=== PATIENT | male | born 1980 | race Caucasian/White ===

== ENCOUNTER 2021-08-16 21:54 | Inpatient (IN) | payer MEDICAID ==
[~2021-08-16] VITALS: Ht 172.7 cm; Wt 131.1 kg
[2021-08-16] MEDS ORDERED: POTA8TAB71 PO (22:09)
[2021-08-16] MEDS ORDERED: APIX5TAB PO (22:09)
[2021-08-16] MEDS ORDERED: SERT-158 PO (22:09)
[2021-08-16] MEDS ORDERED: RISP1TAB48 PO (22:09)
[2021-08-16 22:46] LABS: GLUCOMETER DEV NAME(LOC) POC.BV
[2021-08-16] MEDS: LORazepam 2 MG TABLET PO PRN (23:48)
[2021-08-17 00:34] VITALS: BP 131/88
[2021-08-17] MEDS ORDERED: PNEUMOCOCCAL VACCINE POLYVALENT 0.5 ML VIAL [PPSV23] IM. ONE (01:15)
[2021-08-17] MEDS ORDERED: GuaiFENesin/D-METHORPHAN [SUGAR-FREE] 200-20MG/10 ML SYRUP UDCUP PO PRN (06:15)
[2021-08-17] MEDS ORDERED: ONDANSETRON HCL 4 MG TABLET PO PRN (06:15)
[2021-08-17] MEDS ORDERED: LOPERAMIDE HCL 2 MG CAPSULE PO PRN (06:15)
[2021-08-17] MEDS ORDERED: PETROLATUM,WHITE 28 GM JELLY TP PRN (06:15)
[2021-08-17] MEDS ORDERED: DOCUSATE SODIUM 100 MG CAPSULE PO PRN (06:15)
[2021-08-17] MEDS ORDERED: MAGNESIUM HYDROXIDE SUSPENSION 30 ML UDCUP PO PRN (06:15)
[2021-08-17 07:22] LABS: EOSINOPHILS % (AUTO) 2.6 % (1.0-6.0); HEMATOCRIT 43.1 % (41-53); LYMPHOCYTES # (AUTO) 1.5 K/uL (1.0-4.8); LYMPHOCYTES % (AUTO) 31.4 % (22.0-44.0); MEAN CORPUSCULAR HEMOGLOBIN 29.6 pg (26.0-34.0); MEAN CORPUSCULAR HGB CONC 32.6 G/dL (31.0-37.0); MEAN CORPUSCULAR VOLUME 91 fL (80-100); MONOCYTES # (AUTO) 0.6 K/uL (0.1-1.0); MONOCYTES % (AUTO) 12.9 % (2.0-9.0); NEUTROPHILS # (AUTO) 2.5 K/uL (1.8-7.7); NEUTROPHILS % (AUTO) 52.1 % (40.0-70.0); PLATELET COUNT (AUTO) 213 K/uL (150-450); RED BLOOD CELL COUNT(AUTO) 4.75 MIL/uL (4.50-5.90); RED CELL DISTRIBUTION WIDTH 15.6 % (11.5-14.5)
[2021-08-17 07:30] LABS: HEMOGLOBIN A1C 5.7 % (3.8-5.6)
[2021-08-17 07:51] LABS: ALANINE AMINOTRANSFERASE 43 U/L (12-78); ALBUMIN 3.5 g/dL (3.4-5.0); ALKALINE PHOSPHATASE 56 U/L (46-116); ANION GAP 4 mmol/L (8-16); ASPARTATE AMINOTRANSFERASE 30 U/L (15-37); BILIRUBIN,TOTAL 0.3 mg/dL (0.1-1.0); CARBON DIOXIDE 32 mmol/L (22-29); CHLORIDE 104 mmol/L (98-107); CHOL/HDL RATIO 2.4 (4.2-7.3); CHOLESTEROL 148 mg/dL (131-200); CREATININE 0.84 mg/dL (0.60-1.30); FREE T4 (FREE THYROXINE) 1.06 ng/dL (0.76-1.46); GLUCOSE,RANDOM 88 mg/dL (70-110); HDL CHOLESTEROL 62 mg/dL (40-60); LDL CHOL (CALC.) 69 mg/dL (0-130); POTASSIUM 4.2 mmol/L (3.5-5.1); SODIUM SERUM 140 mmol/L (136-145); THYROID STIMULATING HORMONE 1.32 uIU/mL (0.36-3.74); TOTAL PROTEIN, SERUM 6.8 g/dL (6.4-8.2); TRIGLYCERIDES 87 mg/dL (15-150); UREA NITROGEN, BLOOD 26 mg/dL (7-18)
[2021-08-17 07:53] LABS: GLOMERULAR FILTR. RATE CALC > 60 mL/min (>60)
[2021-08-17] MEDS: LEVOFLOXACIN 500 MG TABLET PO SCH (08:11)
[2021-08-17 08:28] VITALS: BP 145/77
[2021-08-17] MEDS: APIXABAN 5 MG TABLET PO SCH (12:33)
[2021-08-17 17:07] VITALS: BP 128/80
[2021-08-18] MEDS: LORazepam 2 MG TABLET PO PRN (02:06)
[2021-08-18 08:31] VITALS: BP 151/91
[2021-08-18] MEDS: LEVOFLOXACIN 500 MG TABLET PO SCH (08:59)
[2021-08-18] MEDS: SERTRALINE HCL 50 MG TABLET PO SCH ×2 (08:59→09:00)
[2021-08-18] MEDS: APIXABAN 5 MG TABLET PO SCH ×3 (08:59→17:00)
[2021-08-18] MEDS: RisperiDONE 1 MG TABLET PO SCH (09:00)
[2021-08-18 16:13] VITALS: BP 116/65
[2021-08-18] MEDS: RisperiDONE 2 MG TABLET PO SCH (21:03)
[2021-08-18 21:56] LABS: APPEARANCE,URINE CLEAR (CLEAR); BILIRUBIN,URINE NEGATIVE (NEGATIVE); GLUCOSE, URINE (UA) NEGATIVE (NEGATIVE); KETONES,URINE NEGATIVE (NEGATIVE); LEUKOCYTE ESTERASE ,URINE NEGATIVE (NEGATIVE); NITRATE,URINE NEGATIVE (NEGATIVE); OCCULT BLOOD,URINE NEGATIVE (NEGATIVE); PROTEIN,URINE TRACE mg/dL (NEGATIVE); UROBILINOGEN,URINE <=1.0 mg/dL (<=1.0)
[2021-08-18 22:03] LABS: AMPHET/METH SCREEN,URINE NEGATIVE (NEGATIVE); BARBITURATE SCREEN, URINE NEGATIVE (NEGATIVE); BENZODIAZEPINES SCREEN,URINE NEGATIVE (NEGATIVE); CANNABINOID SCREEN,URINE NEGATIVE (NEGATIVE); COCAINE SCREEN,URINE NEGATIVE (NEGATIVE); METHADONE SCREEN, URINE NEGATIVE (NEGATIVE); OPIATE SCREEN,URINE NEGATIVE (NEGATIVE)
[2021-08-18 22:04] LABS: PHENCYCLIDINE SCREEN,URINE NEGATIVE (NEGATIVE)
[2021-08-19] MEDS: LORazepam 2 MG TABLET PO PRN (03:43)
[2021-08-19 03:45] VITALS: BP 155/97
[2021-08-19 08:00] VITALS: BP 151/87
[2021-08-19] MEDS: LEVOFLOXACIN 500 MG TABLET PO SCH (08:54)
[2021-08-19] MEDS: SERTRALINE HCL 50 MG TABLET PO SCH (08:54)
[2021-08-19] MEDS: RisperiDONE 2 MG TABLET PO SCH ×2 (08:54→20:38)
[2021-08-19] MEDS: APIXABAN 5 MG TABLET PO SCH ×2 (08:54→16:36)
[2021-08-19 12:43] VITALS: BP 138/82
[2021-08-19] MEDS: IBUPROFEN 400 MG TABLET PO PRN (12:43)
[2021-08-19 16:36] VITALS: BP 140/75
[2021-08-20] MEDS: LEVOFLOXACIN 500 MG TABLET PO SCH (08:36)
[2021-08-20] MEDS: RisperiDONE 2 MG TABLET PO SCH ×2 (08:37→20:50)
[2021-08-20] MEDS: APIXABAN 5 MG TABLET PO SCH ×2 (08:37→16:42)
[2021-08-20] MEDS: SERTRALINE HCL 50 MG TABLET PO SCH (09:14)
[2021-08-20 10:03] VITALS: BP 149/100
[2021-08-20 19:09] VITALS: BP 148/90
[2021-08-21] MEDS: HALOPERIDOL 5 MG TABLET PO PRN (01:40)
[2021-08-21] MEDS: LORazepam 2 MG TABLET PO PRN ×3 (01:40→21:48)
[2021-08-21] MEDS ORDERED: DiphenhydrAMINE HCL 50 MG/ML VIAL ONE (01:59)
[2021-08-21] MEDS ORDERED: ChlorproMAZINE HCL 50 MG/2 ML AMP IM ONE (02:00)
[2021-08-21] MEDS ORDERED: DiphenhydrAMINE HCL 50 MG/ML VIAL IM ONE (02:00)
[2021-08-21 08:03] VITALS: BP 116/80
[2021-08-21] MEDS: RisperiDONE 2 MG TABLET PO SCH ×2 (08:16→20:30)
[2021-08-21] MEDS: SERTRALINE HCL 50 MG TABLET PO SCH (08:16)
[2021-08-21] MEDS: LEVOFLOXACIN 500 MG TABLET PO SCH (08:20)
[2021-08-21] MEDS: APIXABAN 5 MG TABLET PO SCH ×2 (08:20→16:40)
[2021-08-21 16:34] VITALS: BP 140/78
[2021-08-22 07:23] LABS: COVID AG,FIA SOURCE NASAL SWAB
[2021-08-22] MEDS: RisperiDONE 2 MG TABLET PO SCH (08:23)
[2021-08-22] MEDS: APIXABAN 5 MG TABLET PO SCH ×2 (08:23→17:02)
[2021-08-22] MEDS: SERTRALINE HCL 50 MG TABLET PO SCH (08:23)
[2021-08-22] MEDS: LEVOFLOXACIN 500 MG TABLET PO SCH (08:23)
[2021-08-22 08:57] VITALS: BP 148/97
[2021-08-22] MEDS ORDERED: RisperiDONE 1 MG TABLET PO ONE (09:45)
[2021-08-22] MEDS: ACETAMINOPHEN 325 MG TABLET PO PRN ×2 (12:24→21:24)
[2021-08-22] MEDS: LORazepam 2 MG TABLET PO PRN ×2 (15:39→21:30)
[2021-08-22 16:10] VITALS: BP 132/81
[2021-08-22] MEDS: RisperiDONE 3 MG TABLET PO SCH (20:18)
[2021-08-23 08:00] VITALS: BP 127/70
[2021-08-23] MEDS: SERTRALINE HCL 50 MG TABLET PO SCH (08:42)
[2021-08-23] MEDS: LEVOFLOXACIN 500 MG TABLET PO SCH (08:42)
[2021-08-23] MEDS: APIXABAN 5 MG TABLET PO SCH ×2 (08:42→16:07)
[2021-08-23] MEDS: RisperiDONE 3 MG TABLET PO SCH ×2 (08:42→20:04)
[2021-08-23] MEDS: LORazepam 2 MG TABLET PO PRN ×2 (08:43→18:47)
[2021-08-23 16:29] VITALS: BP 130/83
[2021-08-23] MEDS: ACETAMINOPHEN 325 MG TABLET PO PRN (18:47)
[2021-08-24] MEDS: SERTRALINE HCL 50 MG TABLET PO SCH (08:23)
[2021-08-24] MEDS: RisperiDONE 3 MG TABLET PO SCH ×2 (08:23→20:21)
[2021-08-24] MEDS: APIXABAN 5 MG TABLET PO SCH ×2 (08:23→16:22)
[2021-08-24] MEDS: IBUPROFEN 400 MG TABLET PO PRN (08:23)
[2021-08-24] MEDS: LORazepam 2 MG TABLET PO PRN (08:24)
[2021-08-24 09:53] VITALS: BP 137/69
[2021-08-24 16:44] VITALS: BP 133/86
[2021-08-24 23:04] VITALS: BP 137/69
[2021-08-25] MEDS: APIXABAN 5 MG TABLET PO SCH ×2 (08:30→16:26)
[2021-08-25] MEDS: LORazepam 2 MG TABLET PO PRN (08:30)
[2021-08-25] MEDS: SERTRALINE HCL 50 MG TABLET PO SCH (08:30)
[2021-08-25] MEDS: RisperiDONE 3 MG TABLET PO SCH ×2 (08:30→20:46)
[2021-08-25 08:34] VITALS: BP 154/92
[2021-08-25] MEDS: IBUPROFEN 400 MG TABLET PO PRN (08:34)
[2021-08-25 16:27] VITALS: BP 137/89
[2021-08-26 04:05] VITALS: BP 134/84
[2021-08-26] MEDS: LORazepam 2 MG TABLET PO PRN ×2 (09:05→16:30)
[2021-08-26] MEDS: RisperiDONE 3 MG TABLET PO SCH ×2 (09:05→20:31)
[2021-08-26] MEDS: SERTRALINE HCL 50 MG TABLET PO SCH (09:05)
[2021-08-26] MEDS: APIXABAN 5 MG TABLET PO SCH ×2 (09:05→16:31)
[2021-08-26 09:50] VITALS: BP 151/76
[2021-08-26 16:50] VITALS: BP 152/89
[2021-08-27 00:28] VITALS: BP 153/88
[2021-08-27] MEDS: ZOLPIDEM TARTRATE 10 MG TABLET PO PRN (01:06)
[2021-08-27 08:30] VITALS: BP 171/101
[2021-08-27] MEDS: CloNIDine HCL 0.1 MG TABLET PO PRN (08:31)
[2021-08-27] MEDS: SERTRALINE HCL 50 MG TABLET PO SCH (08:31)
[2021-08-27] MEDS: LORazepam 2 MG TABLET PO PRN ×3 (08:31→20:54)
[2021-08-27] MEDS: RisperiDONE 3 MG TABLET PO SCH ×2 (08:31→20:52)
[2021-08-27] MEDS: APIXABAN 5 MG TABLET PO SCH ×2 (08:32→16:53)
[2021-08-27 12:55] VITALS: BP 106/68
[2021-08-27 16:14] VITALS: BP 102/66
[2021-08-27] MEDS: HALOPERIDOL 5 MG TABLET PO PRN (16:53)
[2021-08-28 08:36] VITALS: BP 128/84
[2021-08-28] MEDS: SERTRALINE HCL 50 MG TABLET PO SCH (08:37)
[2021-08-28] MEDS: RisperiDONE 3 MG TABLET PO SCH ×2 (08:37→20:30)
[2021-08-28] MEDS: APIXABAN 5 MG TABLET PO SCH ×2 (08:37→16:53)
[2021-08-28] MEDS: LORazepam 2 MG TABLET PO PRN ×3 (08:41→20:53)
[2021-08-28 16:25] VITALS: BP 144/94
[2021-08-28] MEDS: HALOPERIDOL 5 MG TABLET PO PRN (16:53)
[2021-08-28 20:54] VITALS: BP 129/85
[2021-08-29 06:41] LABS: COVID AG,FIA SOURCE NASAL SWAB
[2021-08-29 08:21] VITALS: BP 119/81
[2021-08-29] MEDS: APIXABAN 5 MG TABLET PO SCH ×2 (09:00→16:56)
[2021-08-29] MEDS: SERTRALINE HCL 50 MG TABLET PO SCH (09:00)
[2021-08-29] MEDS: DIVALPROEX SODIUM 500 MG DR TABLET PO SCH ×3 (09:00→21:39)
[2021-08-29] MEDS: RisperiDONE 3 MG TABLET PO SCH ×2 (09:01→20:09)
[2021-08-29] MEDS: LORazepam 2 MG TABLET PO PRN ×2 (09:02→16:56)
[2021-08-29] MEDS: HALOPERIDOL 5 MG TABLET PO PRN ×2 (09:02→16:56)
[2021-08-29] MEDS: PALIPERIDONE PALMITATE 234 MG/1.5 ML SYRINGE IM ONE ×2 (09:03→09:22)
[2021-08-29 16:16] VITALS: BP 153/99
[2021-08-29 20:37] VITALS: BP 141/91
[2021-08-30 08:26] VITALS: BP 139/89
[2021-08-30] MEDS: RisperiDONE 3 MG TABLET PO SCH ×2 (08:58→20:03)
[2021-08-30] MEDS: APIXABAN 5 MG TABLET PO SCH ×2 (08:58→16:27)
[2021-08-30] MEDS: SERTRALINE HCL 50 MG TABLET PO SCH (08:58)
[2021-08-30] MEDS: LORazepam 2 MG TABLET PO PRN ×2 (08:58→13:03)
[2021-08-30] MEDS: DIVALPROEX SODIUM 500 MG DR TABLET PO SCH ×2 (08:58→20:03)
[2021-08-30] MEDS: IBUPROFEN 400 MG TABLET PO PRN ×2 (12:46→12:58)
[2021-08-30 16:30] VITALS: BP 112/67
[2021-08-30 20:38] VITALS: BP 118/72
[2021-08-31 08:00] VITALS: BP 117/70
[2021-08-31] MEDS: RisperiDONE 3 MG TABLET PO SCH ×2 (08:09→20:30)
[2021-08-31] MEDS: SERTRALINE HCL 50 MG TABLET PO SCH (08:09)
[2021-08-31] MEDS: LORazepam 2 MG TABLET PO PRN ×2 (08:09→17:03)
[2021-08-31] MEDS: DIVALPROEX SODIUM 500 MG DR TABLET PO SCH ×2 (08:09→20:30)
[2021-08-31] MEDS: APIXABAN 5 MG TABLET PO SCH ×2 (08:09→17:03)
[2021-08-31 16:31] VITALS: BP 140/97
[2021-08-31] MEDS: HALOPERIDOL 5 MG TABLET PO PRN (17:03)
[2021-08-31 20:13] VITALS: BP 116/76
[2021-09-01] MEDS: SERTRALINE HCL 50 MG TABLET PO SCH (08:08)
[2021-09-01] MEDS: RisperiDONE 3 MG TABLET PO SCH ×2 (08:08→20:14)
[2021-09-01] MEDS: DIVALPROEX SODIUM 500 MG DR TABLET PO SCH ×2 (08:08→20:14)
[2021-09-01] MEDS: APIXABAN 5 MG TABLET PO SCH ×2 (08:08→16:54)
[2021-09-01 08:28] VITALS: BP_SYST 143; BP_SYST 145; BP_DIAS 100; BP_DIAS 87
[2021-09-01] MEDS: LORazepam 2 MG TABLET PO PRN ×2 (08:40→16:54)
[2021-09-01 16:15] VITALS: BP 134/86
[2021-09-01] MEDS: HALOPERIDOL 5 MG TABLET PO PRN (16:54)
[2021-09-02 08:01] VITALS: BP 147/86
[2021-09-02] MEDS: LORazepam 2 MG TABLET PO PRN ×2 (08:37→15:50)
[2021-09-02] MEDS: RisperiDONE 3 MG TABLET PO SCH ×2 (08:37→20:19)
[2021-09-02] MEDS: DIVALPROEX SODIUM 500 MG DR TABLET PO SCH ×2 (08:37→20:20)
[2021-09-02] MEDS: APIXABAN 5 MG TABLET PO SCH ×2 (08:37→16:27)
[2021-09-02] MEDS: SERTRALINE HCL 50 MG TABLET PO SCH (08:37)
[2021-09-02] MEDS ORDERED: PALIPERIDONE PALMITATE 156 MG/ML SYRINGE IM ONE (09:00)
[2021-09-02] MEDS: NICOTINE 14 MG/24 HOUR PATCH TD PRN (13:03)
[2021-09-02] MEDS: ACETAMINOPHEN 325 MG TABLET PO PRN (15:50)
[2021-09-02 16:01] VITALS: BP 122/86
[2021-09-03] MEDS: DIVALPROEX SODIUM 500 MG DR TABLET PO SCH ×2 (08:28→20:03)
[2021-09-03] MEDS: RisperiDONE 3 MG TABLET PO SCH ×2 (08:28→20:03)
[2021-09-03] MEDS: SERTRALINE HCL 50 MG TABLET PO SCH (08:28)
[2021-09-03] MEDS: APIXABAN 5 MG TABLET PO SCH ×2 (08:28→16:08)
[2021-09-03] MEDS: LORazepam 2 MG TABLET PO PRN ×2 (08:28→21:24)
[2021-09-03] MEDS: HALOPERIDOL 5 MG TABLET PO PRN ×2 (08:31→16:08)
[2021-09-03 08:32] VITALS: BP 147/98
[2021-09-03 16:14] VITALS: BP 131/79
[2021-09-03] MEDS: NICOTINE 14 MG/24 HOUR PATCH TD PRN (16:45)
[2021-09-04 08:34] VITALS: BP 159/92
[2021-09-04] MEDS: SERTRALINE HCL 50 MG TABLET PO SCH (08:41)
[2021-09-04] MEDS: DIVALPROEX SODIUM 500 MG DR TABLET PO SCH ×2 (08:41→20:49)
[2021-09-04] MEDS: APIXABAN 5 MG TABLET PO SCH ×2 (08:41→16:47)
[2021-09-04] MEDS: RisperiDONE 3 MG TABLET PO SCH ×2 (08:41→20:49)
[2021-09-04 16:00] VITALS: BP 140/78
[2021-09-04] MEDS: NICOTINE 14 MG/24 HOUR PATCH TD PRN (16:21)
[2021-09-04] MEDS: LORazepam 2 MG TABLET PO PRN (19:55)
[2021-09-04] MEDS: HALOPERIDOL 5 MG TABLET PO PRN (19:55)
[2021-09-05 04:08] VITALS: BP 150/91
[2021-09-05 08:00] VITALS: BP 134/76
[2021-09-05] MEDS: APIXABAN 5 MG TABLET PO SCH ×2 (08:21→16:24)
[2021-09-05] MEDS: SERTRALINE HCL 50 MG TABLET PO SCH (08:21)
[2021-09-05] MEDS: RisperiDONE 3 MG TABLET PO SCH ×2 (08:21→20:41)
[2021-09-05] MEDS: DIVALPROEX SODIUM 500 MG DR TABLET PO SCH ×2 (08:21→20:41)
[2021-09-05 10:55] LABS: COVID AG,FIA SOURCE NASAL SWAB
[2021-09-05] MEDS: HALOPERIDOL 5 MG TABLET PO PRN (16:24)
[2021-09-05] MEDS: LORazepam 2 MG TABLET PO PRN (16:24)
[2021-09-05 16:45] VITALS: BP 150/94
[2021-09-06] MEDS: LORazepam 2 MG TABLET PO PRN ×3 (04:20→15:58)
[2021-09-06 04:24] VITALS: BP 144/97
[2021-09-06 08:00] VITALS: BP 138/87
[2021-09-06] MEDS: SERTRALINE HCL 50 MG TABLET PO SCH (08:45)
[2021-09-06] MEDS: DIVALPROEX SODIUM 500 MG DR TABLET PO SCH ×3 (08:45→20:53)
[2021-09-06] MEDS: APIXABAN 5 MG TABLET PO SCH ×2 (08:45→17:03)
[2021-09-06] MEDS: RisperiDONE 3 MG TABLET PO SCH ×2 (08:45→20:22)
[2021-09-06] MEDS: NICOTINE 14 MG/24 HOUR PATCH TD PRN (09:35)
[2021-09-06] MEDS: HALOPERIDOL 5 MG TABLET PO PRN (15:58)
[2021-09-06 16:00] VITALS: BP 143/84
[2021-09-07] MEDS: LORazepam 2 MG TABLET PO PRN ×3 (00:25→20:39)
[2021-09-07 04:00] VITALS: BP 129/82
[2021-09-07] MEDS: APIXABAN 5 MG TABLET PO SCH ×2 (09:05→16:43)
[2021-09-07] MEDS: RisperiDONE 3 MG TABLET PO SCH ×2 (09:05→20:19)
[2021-09-07] MEDS: SERTRALINE HCL 50 MG TABLET PO SCH (09:05)
[2021-09-07] MEDS: DIVALPROEX SODIUM 500 MG DR TABLET PO SCH ×2 (09:05→20:19)
[2021-09-07] MEDS: NICOTINE 14 MG/24 HOUR PATCH TD PRN (09:42)
[2021-09-07 09:48] VITALS: BP 140/85
[2021-09-07] MEDS: HALOPERIDOL 5 MG TABLET PO PRN (11:13)
[2021-09-07 16:00] VITALS: BP 141/78
[2021-09-07] MEDS: MAG HYDROX/AL HYDROX/SIMETH ES 30 ML SUSPENSION UDCUP PO PRN (18:06)
[2021-09-07 20:39] VITALS: BP 110/64
[2021-09-08 08:00] VITALS: BP 140/79
[2021-09-08 08:27] VITALS: BP 142/88
[2021-09-08] MEDS: HALOPERIDOL 5 MG TABLET PO PRN (08:27)
[2021-09-08] MEDS: LORazepam 2 MG TABLET PO PRN ×2 (08:27→16:37)
[2021-09-08] MEDS: DIVALPROEX SODIUM 500 MG DR TABLET PO SCH ×2 (08:27→20:25)
[2021-09-08] MEDS: SERTRALINE HCL 50 MG TABLET PO SCH (08:28)
[2021-09-08] MEDS: RisperiDONE 3 MG TABLET PO SCH ×2 (08:28→20:25)
[2021-09-08] MEDS: APIXABAN 5 MG TABLET PO SCH ×2 (08:28→16:36)
[2021-09-08] MEDS: NICOTINE 14 MG/24 HOUR PATCH TD PRN (10:11)
[2021-09-08 16:00] VITALS: BP 109/58
[2021-09-08] MEDS: BusPIRone HCL 5 MG TABLET PO SCH ×2 (16:35→20:25)
[2021-09-08 21:00] VITALS: BP 134/74
[2021-09-09] MEDS: LORazepam 2 MG TABLET PO PRN ×2 (01:38→10:16)
[2021-09-09 08:45] VITALS: BP 101/61
[2021-09-09] MEDS: SERTRALINE HCL 50 MG TABLET PO SCH (09:29)
[2021-09-09] MEDS: BusPIRone HCL 5 MG TABLET PO SCH ×3 (09:29→20:18)
[2021-09-09] MEDS: RisperiDONE 3 MG TABLET PO SCH ×2 (09:29→20:18)
[2021-09-09] MEDS: APIXABAN 5 MG TABLET PO SCH ×2 (09:29→16:00)
[2021-09-09] MEDS: DIVALPROEX SODIUM 500 MG DR TABLET PO SCH ×2 (09:29→20:18)
[2021-09-09] MEDS: NICOTINE 14 MG/24 HOUR PATCH TD PRN (09:32)
[2021-09-09 12:08] VITALS: BP 101/61
[2021-09-09 16:00] VITALS: BP 111/69
[2021-09-09 21:51] LABS: APPEARANCE,URINE CLEAR (CLEAR); BILIRUBIN,URINE NEGATIVE (NEGATIVE); GLUCOSE, URINE (UA) NEGATIVE (NEGATIVE); KETONES,URINE NEGATIVE (NEGATIVE); LEUKOCYTE ESTERASE ,URINE NEGATIVE (NEGATIVE); NITRATE,URINE NEGATIVE (NEGATIVE); OCCULT BLOOD,URINE NEGATIVE (NEGATIVE); PH,URINE 6.5 (5.0-8.0); PROTEIN,URINE NEGATIVE (NEGATIVE); SPECIFIC GRAVITIY, URINE 1.023 (1.003-1.030); UROBILINOGEN,URINE <=1.0 mg/dL (<=1.0)
[2021-09-10] MEDS: LORazepam 2 MG TABLET PO PRN ×2 (07:00→18:47)
[2021-09-10] MEDS: ALBUTEROL SULFATE HFA 90 MCG/PUFF 8 GM INHALER IH PRN ×2 (07:52→18:49)
[2021-09-10 08:00] VITALS: BP 157/99
[2021-09-10] MEDS: RisperiDONE 3 MG TABLET PO SCH ×2 (08:13→20:31)
[2021-09-10] MEDS: APIXABAN 5 MG TABLET PO SCH ×2 (08:13→16:32)
[2021-09-10] MEDS: SERTRALINE HCL 50 MG TABLET PO SCH (08:13)
[2021-09-10] MEDS: BusPIRone HCL 5 MG TABLET PO SCH ×3 (08:14→20:31)
[2021-09-10] MEDS: DIVALPROEX SODIUM 500 MG DR TABLET PO SCH ×2 (08:14→20:31)
[2021-09-10] MEDS: NICOTINE 14 MG/24 HOUR PATCH TD PRN (11:16)
[2021-09-10 16:14] VITALS: BP 122/70
[2021-09-10] MEDS: HALOPERIDOL 5 MG TABLET PO PRN (18:47)
[2021-09-10] MEDS: ACETAMINOPHEN 325 MG TABLET PO PRN (19:05)
[2021-09-11 08:30] VITALS: BP 132/85
[2021-09-11] MEDS: LORazepam 2 MG TABLET PO PRN ×2 (08:34→16:09)
[2021-09-11] MEDS: HALOPERIDOL 5 MG TABLET PO PRN ×2 (08:34→16:09)
[2021-09-11] MEDS: ALBUTEROL SULFATE HFA 90 MCG/PUFF 8 GM INHALER IH PRN (08:36)
[2021-09-11] MEDS: DIVALPROEX SODIUM 500 MG DR TABLET PO SCH ×2 (09:15→20:29)
[2021-09-11] MEDS: SERTRALINE HCL 50 MG TABLET PO SCH (09:16)
[2021-09-11] MEDS: APIXABAN 5 MG TABLET PO SCH ×2 (09:16→16:09)
[2021-09-11] MEDS: BusPIRone HCL 5 MG TABLET PO SCH ×3 (09:16→21:12)
[2021-09-11] MEDS: RisperiDONE 3 MG TABLET PO SCH ×2 (09:16→20:29)
[2021-09-11] MEDS: NICOTINE 14 MG/24 HOUR PATCH TD PRN (09:42)
[2021-09-11] MEDS: ACETAMINOPHEN 325 MG TABLET PO PRN (13:15)
[2021-09-11 13:17] VITALS: BP 136/80
[2021-09-11 16:10] VITALS: BP 135/95
[2021-09-11] MEDS: ZOLPIDEM TARTRATE 10 MG TABLET PO PRN (20:27)
[2021-09-12] MEDS: BusPIRone HCL 5 MG TABLET PO SCH ×3 (08:32→20:14)
[2021-09-12] MEDS: DIVALPROEX SODIUM 500 MG DR TABLET PO SCH ×2 (08:32→20:14)
[2021-09-12] MEDS: SERTRALINE HCL 50 MG TABLET PO SCH (08:32)
[2021-09-12] MEDS: APIXABAN 5 MG TABLET PO SCH ×2 (08:32→16:35)
[2021-09-12] MEDS: RisperiDONE 3 MG TABLET PO SCH ×2 (08:32→20:14)
[2021-09-12 09:19] VITALS: BP 104/62
[2021-09-12 10:10] LABS: COVID AG,FIA SOURCE NASOPHARYNGEAL
[2021-09-12] MEDS: HALOPERIDOL 5 MG TABLET PO PRN ×2 (10:37→16:35)
[2021-09-12] MEDS: LORazepam 2 MG TABLET PO PRN ×2 (10:37→18:48)
[2021-09-12] MEDS: NICOTINE 14 MG/24 HOUR PATCH TD PRN (12:33)
[2021-09-12] MEDS ORDERED: TUBERCULIN, PURIFIED PROTEIN DERIVATIVE 5 TU/0.1 ML SYRINGE ID ONE (16:00)
[2021-09-12 16:17] VITALS: BP 150/81
[2021-09-13] MEDS: DIVALPROEX SODIUM 500 MG DR TABLET PO SCH ×2 (08:37→20:21)
[2021-09-13] MEDS: SERTRALINE HCL 50 MG TABLET PO SCH (08:37)
[2021-09-13] MEDS: BusPIRone HCL 5 MG TABLET PO SCH ×3 (08:37→20:21)
[2021-09-13] MEDS: RisperiDONE 3 MG TABLET PO SCH ×2 (08:37→20:21)
[2021-09-13] MEDS: APIXABAN 5 MG TABLET PO SCH ×2 (08:37→17:06)
[2021-09-13] MEDS: LORazepam 2 MG TABLET PO PRN (08:38)
[2021-09-13] MEDS: HALOPERIDOL 5 MG TABLET PO PRN ×2 (08:38→16:06)
[2021-09-13 09:42] VITALS: BP 116/73
[2021-09-13] MEDS: NICOTINE 14 MG/24 HOUR PATCH TD PRN (10:11)
[2021-09-13 16:00] VITALS: BP 143/81
[2021-09-13 17:06] VITALS: BP 138/76
[2021-09-13] MEDS: ACETAMINOPHEN 325 MG TABLET PO PRN (17:06)
[2021-09-13] MEDS: ZOLPIDEM TARTRATE 10 MG TABLET PO PRN (20:21)
[2021-09-14] MEDS: HALOPERIDOL 5 MG TABLET PO PRN ×2 (04:00→17:16)
[2021-09-14] MEDS: LORazepam 2 MG TABLET PO PRN ×3 (04:00→16:47)
[2021-09-14 04:02] VITALS: BP 138/99
[2021-09-14 08:00] VITALS: BP 105/61
[2021-09-14] MEDS: APIXABAN 5 MG TABLET PO SCH ×2 (09:07→16:47)
[2021-09-14] MEDS: SERTRALINE HCL 50 MG TABLET PO SCH (09:07)
[2021-09-14] MEDS: RisperiDONE 3 MG TABLET PO SCH ×2 (09:07→20:32)
[2021-09-14] MEDS: BusPIRone HCL 5 MG TABLET PO SCH ×3 (09:07→21:13)
[2021-09-14] MEDS: DIVALPROEX SODIUM 500 MG DR TABLET PO SCH ×2 (09:07→20:32)
[2021-09-14] MEDS: NICOTINE 14 MG/24 HOUR PATCH TD PRN (10:18)
[2021-09-14 16:16] VITALS: BP 147/88
[2021-09-14] MEDS: MAG HYDROX/AL HYDROX/SIMETH ES 30 ML SUSPENSION UDCUP PO PRN (23:25)
[2021-09-15 03:41] VITALS: BP 140/85
[2021-09-15] MEDS: LORazepam 2 MG TABLET PO PRN ×4 (03:44→21:12)
[2021-09-15] MEDS: HALOPERIDOL 5 MG TABLET PO PRN ×3 (03:44→21:12)
[2021-09-15 08:00] VITALS: BP 159/60
[2021-09-15] MEDS: BusPIRone HCL 5 MG TABLET PO SCH ×3 (08:53→21:14)
[2021-09-15] MEDS: DIVALPROEX SODIUM 500 MG DR TABLET PO SCH ×2 (08:53→21:10)
[2021-09-15] MEDS: SERTRALINE HCL 50 MG TABLET PO SCH (08:53)
[2021-09-15] MEDS: APIXABAN 5 MG TABLET PO SCH ×2 (08:53→17:05)
[2021-09-15] MEDS: RisperiDONE 3 MG TABLET PO SCH ×2 (08:53→21:09)
[2021-09-15] MEDS: NICOTINE 14 MG/24 HOUR PATCH TD PRN (09:54)
[2021-09-16] MEDS: RisperiDONE 3 MG TABLET PO SCH ×2 (08:36→21:19)
[2021-09-16] MEDS: APIXABAN 5 MG TABLET PO SCH ×2 (08:36→16:59)
[2021-09-16] MEDS: BusPIRone HCL 5 MG TABLET PO SCH ×3 (08:37→21:19)
[2021-09-16] MEDS: DIVALPROEX SODIUM 500 MG DR TABLET PO SCH ×2 (08:37→21:20)
[2021-09-16] MEDS: SERTRALINE HCL 50 MG TABLET PO SCH (08:37)
[2021-09-16 08:50] VITALS: BP 130/75
[2021-09-16] MEDS: HALOPERIDOL 5 MG TABLET PO PRN ×2 (09:28→15:30)
[2021-09-16] MEDS: LORazepam 2 MG TABLET PO PRN ×2 (09:28→15:30)
[2021-09-16] MEDS: NICOTINE 14 MG/24 HOUR PATCH TD PRN (09:32)
[2021-09-16 16:26] VITALS: BP 134/86
[2021-09-17] MEDS: BusPIRone HCL 5 MG TABLET PO SCH ×3 (08:26→20:43)
[2021-09-17] MEDS: DIVALPROEX SODIUM 500 MG DR TABLET PO SCH ×2 (08:26→20:44)
[2021-09-17] MEDS: SERTRALINE HCL 50 MG TABLET PO SCH (08:26)
[2021-09-17] MEDS: RisperiDONE 3 MG TABLET PO SCH ×2 (08:26→20:44)
[2021-09-17] MEDS: APIXABAN 5 MG TABLET PO SCH ×2 (08:27→17:15)
[2021-09-17 09:08] VITALS: BP 128/68
[2021-09-17] MEDS: NICOTINE 14 MG/24 HOUR PATCH TD PRN (09:22)
[2021-09-17] MEDS: HALOPERIDOL 5 MG TABLET PO PRN ×2 (12:55→19:36)
[2021-09-17] MEDS: LORazepam 2 MG TABLET PO PRN ×2 (12:55→19:36)
[2021-09-17 16:50] VITALS: BP 130/80
[2021-09-18] MEDS: APIXABAN 5 MG TABLET PO SCH ×2 (08:38→16:17)
[2021-09-18] MEDS: BusPIRone HCL 5 MG TABLET PO SCH ×3 (08:39→20:21)
[2021-09-18] MEDS: SERTRALINE HCL 50 MG TABLET PO SCH (08:39)
[2021-09-18] MEDS: RisperiDONE 3 MG TABLET PO SCH ×2 (08:39→20:21)
[2021-09-18] MEDS: DIVALPROEX SODIUM 500 MG DR TABLET PO SCH ×2 (08:39→20:21)
[2021-09-18] MEDS: NICOTINE 14 MG/24 HOUR PATCH TD PRN (08:54)
[2021-09-18 09:09] VITALS: BP 153/85
[2021-09-18] MEDS: ACETAMINOPHEN 325 MG TABLET PO PRN (12:29)
[2021-09-18] MEDS: LORazepam 2 MG TABLET PO PRN (16:16)
[2021-09-18] MEDS: HALOPERIDOL 5 MG TABLET PO PRN (16:16)
[2021-09-18 20:31] VITALS: BP 140/90
[2021-09-18] MEDS: IBUPROFEN 400 MG TABLET PO PRN (20:34)
[2021-09-18 21:34] VITALS: BP 140/80
[2021-09-18] MEDS: ZOLPIDEM TARTRATE 10 MG TABLET PO PRN (22:06)
[2021-09-19 04:01] VITALS: BP 143/85
[2021-09-19] MEDS: ACETAMINOPHEN 325 MG TABLET PO PRN (04:05)
[2021-09-19] MEDS: LORazepam 2 MG TABLET PO PRN ×2 (04:05→23:00)
[2021-09-19 08:04] VITALS: BP 113/63
[2021-09-19] MEDS: APIXABAN 5 MG TABLET PO SCH ×2 (08:50→16:23)
[2021-09-19] MEDS: SERTRALINE HCL 50 MG TABLET PO SCH (08:51)
[2021-09-19] MEDS: DIVALPROEX SODIUM 500 MG DR TABLET PO SCH ×2 (08:51→20:13)
[2021-09-19] MEDS: BusPIRone HCL 5 MG TABLET PO SCH ×3 (08:51→20:13)
[2021-09-19] MEDS: RisperiDONE 3 MG TABLET PO SCH ×2 (08:51→20:13)
[2021-09-19] MEDS: NICOTINE 14 MG/24 HOUR PATCH TD PRN (09:34)
[2021-09-19 09:59] LABS: COVID AG,FIA SOURCE NASAL SWAB
[2021-09-19] MEDS: IBUPROFEN 400 MG TABLET PO PRN (10:30)
[2021-09-19 10:31] VITALS: BP 116/70
[2021-09-19 16:19] VITALS: BP 126/73
[2021-09-19] MEDS: HALOPERIDOL 5 MG TABLET PO PRN (23:00)
[2021-09-20] MEDS: DIVALPROEX SODIUM 500 MG DR TABLET PO SCH ×3 (09:00→20:46)
[2021-09-20] MEDS: RisperiDONE 3 MG TABLET PO SCH ×2 (09:25→20:24)
[2021-09-20] MEDS: APIXABAN 5 MG TABLET PO SCH ×2 (09:25→16:55)
[2021-09-20] MEDS: BusPIRone HCL 5 MG TABLET PO SCH (09:26)
[2021-09-20] MEDS: SERTRALINE HCL 50 MG TABLET PO SCH (09:27)
[2021-09-20] MEDS: NICOTINE 14 MG/24 HOUR PATCH TD PRN (10:41)
[2021-09-20] MEDS: ALBUTEROL SULFATE HFA 90 MCG/PUFF 8 GM INHALER IH PRN (10:42)
[2021-09-20] MEDS: HALOPERIDOL 5 MG TABLET PO PRN ×2 (10:43→15:00)
[2021-09-20] MEDS: LORazepam 2 MG TABLET PO PRN ×2 (10:43→15:00)
[2021-09-20 14:53] VITALS: BP 126/74
[2021-09-20] MEDS: IBUPROFEN 400 MG TABLET PO PRN (14:53)
[2021-09-20 16:13] VITALS: BP 128/74
[2021-09-20] MEDS: BusPIRone HCL 10 MG TABLET PO SCH ×2 (16:55→20:24)
[2021-09-21 08:03] VITALS: BP 148/94
[2021-09-21] MEDS: RisperiDONE 3 MG TABLET PO SCH ×2 (08:45→20:27)
[2021-09-21] MEDS: DIVALPROEX SODIUM 500 MG DR TABLET PO SCH ×2 (08:45→20:36)
[2021-09-21] MEDS: APIXABAN 5 MG TABLET PO SCH ×2 (08:45→16:37)
[2021-09-21] MEDS: BusPIRone HCL 10 MG TABLET PO SCH ×3 (08:45→20:27)
[2021-09-21] MEDS: SERTRALINE HCL 50 MG TABLET PO SCH (08:46)
[2021-09-21] MEDS: NICOTINE 14 MG/24 HOUR PATCH TD PRN (10:12)
[2021-09-21 20:26] VITALS: BP 140/83
[2021-09-21 23:40] VITALS: BP 144/89
[2021-09-21] MEDS: IBUPROFEN 400 MG TABLET PO PRN (23:44)
[2021-09-22 04:50] VITALS: BP 150/89
[2021-09-22] MEDS: ACETAMINOPHEN 325 MG TABLET PO PRN (04:52)
[2021-09-22 08:00] VITALS: BP 154/92
[2021-09-22] MEDS: RisperiDONE 3 MG TABLET PO SCH ×2 (09:54→20:24)
[2021-09-22] MEDS: DIVALPROEX SODIUM 500 MG DR TABLET PO SCH ×2 (09:54→20:24)
[2021-09-22] MEDS: APIXABAN 5 MG TABLET PO SCH ×2 (09:54→16:20)
[2021-09-22] MEDS: SERTRALINE HCL 50 MG TABLET PO SCH (09:54)
[2021-09-22] MEDS: BusPIRone HCL 10 MG TABLET PO SCH ×3 (10:01→20:24)
[2021-09-22 10:31] VITALS: BP_SYST 149; BP_SYST 152; BP_DIAS 78; BP_DIAS 89
[2021-09-22] MEDS: IBUPROFEN 400 MG TABLET PO PRN (10:31)
[2021-09-22] MEDS: LORazepam 2 MG TABLET PO PRN (10:31)
[2021-09-22] MEDS: HALOPERIDOL 5 MG TABLET PO PRN (10:31)
[2021-09-22] MEDS: NICOTINE 14 MG/24 HOUR PATCH TD PRN (16:53)
[2021-09-22 17:00] VITALS: BP 149/80
[2021-09-23 02:50] VITALS: BP 146/100
[2021-09-23] MEDS: ALBUTEROL SULFATE HFA 90 MCG/PUFF 8 GM INHALER IH PRN (02:51)
[2021-09-23] MEDS: ACETAMINOPHEN 325 MG TABLET PO PRN (02:52)
[2021-09-23 03:04] VITALS: BP 146/100
[2021-09-23] MEDS: LORazepam 2 MG TABLET PO PRN (04:06)
[2021-09-23] MEDS: HALOPERIDOL 5 MG TABLET PO PRN (04:06)
[2021-09-23 08:00] VITALS: BP 126/86
[2021-09-23] MEDS: APIXABAN 5 MG TABLET PO SCH ×2 (08:55→16:50)
[2021-09-23] MEDS: RisperiDONE 3 MG TABLET PO SCH ×2 (08:55→20:48)
[2021-09-23] MEDS: BusPIRone HCL 10 MG TABLET PO SCH ×3 (08:55→20:48)
[2021-09-23] MEDS: DIVALPROEX SODIUM 500 MG DR TABLET PO SCH ×2 (08:55→20:48)
[2021-09-23] MEDS: SERTRALINE HCL 50 MG TABLET PO SCH (08:55)
[2021-09-23] MEDS: NICOTINE 14 MG/24 HOUR PATCH TD PRN (09:38)
[2021-09-23 16:21] VITALS: BP 130/82
[2021-09-24 04:25] VITALS: BP 143/85
[2021-09-24 08:28] VITALS: BP 112/74
[2021-09-24] MEDS: APIXABAN 5 MG TABLET PO SCH ×2 (09:07→16:10)
[2021-09-24] MEDS: BusPIRone HCL 10 MG TABLET PO SCH ×3 (09:07→20:23)
[2021-09-24] MEDS: DIVALPROEX SODIUM 500 MG DR TABLET PO SCH ×2 (09:07→20:23)
[2021-09-24] MEDS: SERTRALINE HCL 50 MG TABLET PO SCH (09:07)
[2021-09-24] MEDS: NICOTINE 14 MG/24 HOUR PATCH TD PRN (09:10)
[2021-09-24 16:02] VITALS: BP 146/82
[2021-09-24] MEDS: LORazepam 2 MG TABLET PO PRN (16:12)
[2021-09-24] MEDS: HALOPERIDOL 5 MG TABLET PO PRN (16:12)
[2021-09-25 08:08] VITALS: BP 151/97
[2021-09-25] MEDS: LORazepam 2 MG TABLET PO PRN ×2 (08:42→16:57)
[2021-09-25] MEDS: APIXABAN 5 MG TABLET PO SCH ×2 (08:42→16:57)
[2021-09-25] MEDS: BusPIRone HCL 10 MG TABLET PO SCH ×3 (08:42→20:30)
[2021-09-25] MEDS: HALOPERIDOL 5 MG TABLET PO PRN ×2 (08:42→16:57)
[2021-09-25] MEDS: SERTRALINE HCL 50 MG TABLET PO SCH (08:42)
[2021-09-25] MEDS: DIVALPROEX SODIUM 500 MG DR TABLET PO SCH ×2 (08:43→20:31)
[2021-09-25] MEDS: IBUPROFEN 400 MG TABLET PO PRN (12:17)
[2021-09-25 16:54] VITALS: BP 114/66
[2021-09-26] MEDS: HALOPERIDOL 5 MG TABLET PO PRN ×2 (06:09→16:21)
[2021-09-26] MEDS: LORazepam 2 MG TABLET PO PRN ×2 (06:09→16:21)
[2021-09-26 06:49] LABS: COVID AG,FIA SOURCE NASAL SWAB
[2021-09-26 08:18] VITALS: BP 112/71
[2021-09-26] MEDS: BusPIRone HCL 10 MG TABLET PO SCH ×3 (09:24→20:40)
[2021-09-26] MEDS: SERTRALINE HCL 50 MG TABLET PO SCH (09:24)
[2021-09-26] MEDS: DIVALPROEX SODIUM 500 MG DR TABLET PO SCH ×2 (09:24→20:40)
[2021-09-26] MEDS: APIXABAN 5 MG TABLET PO SCH ×2 (09:24→16:20)
[2021-09-26] MEDS: IBUPROFEN 400 MG TABLET PO PRN (14:31)
[2021-09-26 16:21] VITALS: BP 131/85
[2021-09-26] MEDS: ZOLPIDEM TARTRATE 10 MG TABLET PO PRN (22:27)
[2021-09-27] MEDS: HALOPERIDOL 5 MG TABLET PO PRN ×3 (03:44→15:01)
[2021-09-27] MEDS: LORazepam 2 MG TABLET PO PRN ×3 (03:44→15:01)
[2021-09-27 09:30] VITALS: BP 143/95
[2021-09-27] MEDS: ALBUTEROL SULFATE HFA 90 MCG/PUFF 8 GM INHALER IH PRN ×2 (09:31→18:07)
[2021-09-27] MEDS: APIXABAN 5 MG TABLET PO SCH ×2 (09:31→17:21)
[2021-09-27] MEDS: BusPIRone HCL 10 MG TABLET PO SCH ×3 (09:31→20:05)
[2021-09-27] MEDS: SERTRALINE HCL 50 MG TABLET PO SCH (09:31)
[2021-09-27] MEDS: DIVALPROEX SODIUM 500 MG DR TABLET PO SCH ×2 (09:31→20:05)
[2021-09-27] MEDS: IBUPROFEN 400 MG TABLET PO PRN (10:13)
[2021-09-27 16:07] VITALS: BP 146/84
[2021-09-28] MEDS: HALOPERIDOL 5 MG TABLET PO PRN ×4 (04:31→19:56)
[2021-09-28] MEDS: LORazepam 2 MG TABLET PO PRN ×4 (04:31→19:56)
[2021-09-28 08:30] VITALS: BP 154/87
[2021-09-28] MEDS: SERTRALINE HCL 50 MG TABLET PO SCH (09:06)
[2021-09-28] MEDS: DIVALPROEX SODIUM 500 MG DR TABLET PO SCH ×2 (09:07→20:10)
[2021-09-28] MEDS: APIXABAN 5 MG TABLET PO SCH ×2 (09:07→17:00)
[2021-09-28] MEDS: BusPIRone HCL 10 MG TABLET PO SCH ×3 (09:07→20:09)
[2021-09-28] MEDS: NICOTINE 14 MG/24 HOUR PATCH TD PRN (14:31)
[2021-09-29] MEDS: ZOLPIDEM TARTRATE 10 MG TABLET PO PRN (02:36)
[2021-09-29 04:02] VITALS: BP 137/79
[2021-09-29] MEDS: HALOPERIDOL 5 MG TABLET PO PRN ×3 (06:53→17:07)
[2021-09-29] MEDS: LORazepam 2 MG TABLET PO PRN ×3 (06:53→17:06)
[2021-09-29 08:16] VITALS: BP 104/58
[2021-09-29] MEDS: APIXABAN 5 MG TABLET PO SCH ×2 (08:24→16:20)
[2021-09-29] MEDS: DIVALPROEX SODIUM 500 MG DR TABLET PO SCH ×2 (08:24→20:37)
[2021-09-29] MEDS: SERTRALINE HCL 50 MG TABLET PO SCH (08:24)
[2021-09-29] MEDS: BusPIRone HCL 10 MG TABLET PO SCH ×3 (08:24→20:37)
[2021-09-29 16:12] VITALS: BP 137/67
[2021-09-30] MEDS: ZOLPIDEM TARTRATE 10 MG TABLET PO PRN (02:15)
[2021-09-30 06:29] LABS: COVID AG,FIA SOURCE NASAL SWAB
[2021-09-30 08:13] VITALS: BP 117/72
[2021-09-30] MEDS: HALOPERIDOL 5 MG TABLET PO PRN ×2 (08:58→16:33)
[2021-09-30] MEDS: SERTRALINE HCL 50 MG TABLET PO SCH (08:58)
[2021-09-30] MEDS: LORazepam 2 MG TABLET PO PRN ×2 (08:58→16:33)
[2021-09-30] MEDS: BusPIRone HCL 10 MG TABLET PO SCH ×3 (08:59→20:20)
[2021-09-30] MEDS: APIXABAN 5 MG TABLET PO SCH ×2 (08:59→16:32)
[2021-09-30] MEDS ORDERED: PALIPERIDONE PALMITATE 234 MG/1.5 ML SYRINGE IM SCH (09:00)
[2021-09-30] MEDS: DIVALPROEX SODIUM 500 MG DR TABLET PO SCH ×2 (09:00→20:20)
[2021-09-30] MEDS: IBUPROFEN 400 MG TABLET PO PRN (10:40)
[2021-09-30 16:08] VITALS: BP 152/110
[2021-10-01] MEDS: ZOLPIDEM TARTRATE 10 MG TABLET PO PRN ×2 (00:03→23:45)
[2021-10-01] MEDS: LORazepam 2 MG TABLET PO PRN ×4 (04:59→17:58)
[2021-10-01] MEDS: HALOPERIDOL 5 MG TABLET PO PRN ×4 (04:59→17:58)
[2021-10-01 08:26] VITALS: BP 118/63
[2021-10-01] MEDS: DIVALPROEX SODIUM 500 MG DR TABLET PO SCH ×2 (09:00→20:27)
[2021-10-01] MEDS: ALBUTEROL SULFATE HFA 90 MCG/PUFF 8 GM INHALER IH PRN (09:26)
[2021-10-01] MEDS: BusPIRone HCL 10 MG TABLET PO SCH ×3 (09:26→20:27)
[2021-10-01] MEDS: SERTRALINE HCL 50 MG TABLET PO SCH (09:26)
[2021-10-01] MEDS: APIXABAN 5 MG TABLET PO SCH ×2 (09:26→16:36)
[2021-10-01 16:17] VITALS: BP 171/101
[2021-10-02] MEDS: IBUPROFEN 400 MG TABLET PO PRN (02:58)
[2021-10-02] MEDS: APIXABAN 5 MG TABLET PO SCH ×2 (07:44→16:23)
[2021-10-02] MEDS: SERTRALINE HCL 50 MG TABLET PO SCH (07:45)
[2021-10-02] MEDS: HALOPERIDOL 5 MG TABLET PO PRN ×2 (07:45→13:35)
[2021-10-02] MEDS: LORazepam 2 MG TABLET PO PRN ×2 (07:45→13:36)
[2021-10-02] MEDS: BusPIRone HCL 10 MG TABLET PO SCH ×3 (07:45→21:10)
[2021-10-02 08:16] VITALS: BP 161/88
[2021-10-02] MEDS: DIVALPROEX SODIUM 500 MG DR TABLET PO SCH ×2 (09:00→21:00)
[2021-10-02 16:12] VITALS: BP 146/93
[2021-10-02] MEDS: ZOLPIDEM TARTRATE 10 MG TABLET PO PRN (20:07)
[2021-10-03 06:46] VITALS: BP 126/77
[2021-10-03] MEDS: IBUPROFEN 400 MG TABLET PO PRN ×2 (06:46→14:46)
[2021-10-03 08:00] VITALS: BP 126/77
[2021-10-03] MEDS: APIXABAN 5 MG TABLET PO SCH ×2 (10:07→16:01)
[2021-10-03] MEDS: HALOPERIDOL 5 MG TABLET PO PRN ×3 (10:07→19:08)
[2021-10-03] MEDS: SERTRALINE HCL 50 MG TABLET PO SCH (10:07)
[2021-10-03] MEDS: BusPIRone HCL 10 MG TABLET PO SCH ×3 (10:07→20:02)
[2021-10-03] MEDS: LORazepam 2 MG TABLET PO PRN ×2 (10:07→14:25)
[2021-10-03] MEDS: DIVALPROEX SODIUM 500 MG DR TABLET PO SCH ×2 (10:07→20:02)
[2021-10-03 16:26] VITALS: BP 138/72
[2021-10-03] MEDS: ALBUTEROL SULFATE HFA 90 MCG/PUFF 8 GM INHALER IH PRN (18:37)
[2021-10-04] MEDS: ZOLPIDEM TARTRATE 10 MG TABLET PO PRN (02:18)
[2021-10-04] MEDS: LORazepam 2 MG TABLET PO PRN ×3 (02:56→18:23)
[2021-10-04] MEDS: HALOPERIDOL 5 MG TABLET PO PRN ×2 (07:48→15:31)
[2021-10-04] MEDS: BusPIRone HCL 10 MG TABLET PO SCH ×3 (08:58→20:13)
[2021-10-04] MEDS: DIVALPROEX SODIUM 500 MG DR TABLET PO SCH ×2 (08:58→20:13)
[2021-10-04] MEDS: APIXABAN 5 MG TABLET PO SCH ×2 (08:59→17:16)
[2021-10-04] MEDS: SERTRALINE HCL 50 MG TABLET PO SCH (08:59)
[2021-10-04] MEDS: IBUPROFEN 400 MG TABLET PO PRN (11:18)
[2021-10-04 11:50] VITALS: BP 174/99
[2021-10-04] MEDS: CloNIDine HCL 0.1 MG TABLET PO PRN (11:51)
[2021-10-04 16:21] VITALS: BP 147/78
[2021-10-04] MEDS: ALBUTEROL SULFATE HFA 90 MCG/PUFF 8 GM INHALER IH PRN (18:24)
[2021-10-05] MEDS: ZOLPIDEM TARTRATE 10 MG TABLET PO PRN (00:54)
[2021-10-05] MEDS: HALOPERIDOL 5 MG TABLET PO PRN ×3 (07:16→19:16)
[2021-10-05] MEDS: LORazepam 2 MG TABLET PO PRN ×3 (07:16→19:16)
[2021-10-05] MEDS: APIXABAN 5 MG TABLET PO SCH ×2 (07:16→17:06)
[2021-10-05] MEDS: SERTRALINE HCL 50 MG TABLET PO SCH (07:16)
[2021-10-05] MEDS: DIVALPROEX SODIUM 500 MG DR TABLET PO SCH ×2 (07:16→20:38)
[2021-10-05] MEDS: ALBUTEROL SULFATE HFA 90 MCG/PUFF 8 GM INHALER IH PRN (07:16)
[2021-10-05] MEDS: BusPIRone HCL 10 MG TABLET PO SCH ×3 (07:16→20:38)
[2021-10-05 08:37] VITALS: BP 156/86
[2021-10-05] MEDS: IBUPROFEN 400 MG TABLET PO PRN (09:33)
[2021-10-05 16:00] VITALS: BP 120/66
[2021-10-06] MEDS: ZOLPIDEM TARTRATE 10 MG TABLET PO PRN ×2 (01:20→20:50)
[2021-10-06] MEDS: LORazepam 2 MG TABLET PO PRN ×3 (06:01→16:32)
[2021-10-06] MEDS: HALOPERIDOL 5 MG TABLET PO PRN ×3 (06:01→16:32)
[2021-10-06] MEDS: BusPIRone HCL 10 MG TABLET PO SCH ×3 (08:07→20:09)
[2021-10-06] MEDS: APIXABAN 5 MG TABLET PO SCH ×2 (08:07→16:32)
[2021-10-06] MEDS: DIVALPROEX SODIUM 500 MG DR TABLET PO SCH ×2 (08:07→20:09)
[2021-10-06] MEDS: SERTRALINE HCL 50 MG TABLET PO SCH (08:07)
[2021-10-06] MEDS: IBUPROFEN 400 MG TABLET PO PRN ×2 (08:07→16:33)
[2021-10-06 09:39] VITALS: BP 111/65
[2021-10-06 14:44] LABS: ANION GAP 6 mmol/L (8-16); CALCIUM, TOTAL 8.9 mg/dL (8.8-10.5); CARBON DIOXIDE 29 mmol/L (22-29); CHLORIDE 105 mmol/L (98-107); CREATININE 0.87 mg/dL (0.60-1.30); GLUCOSE,RANDOM 84 mg/dL (70-110); POTASSIUM 4.5 mmol/L (3.5-5.1); SODIUM SERUM 140 mmol/L (136-145); UREA NITROGEN, BLOOD 22 mg/dL (7-18)
[2021-10-06 14:51] LABS: GLOMERULAR FILTR. RATE CALC > 60 mL/min (>60)
[2021-10-06 16:11] VITALS: BP 138/94
[2021-10-07] MEDS: LORazepam 2 MG TABLET PO PRN ×3 (05:30→13:41)
[2021-10-07] MEDS: HALOPERIDOL 5 MG TABLET PO PRN ×3 (05:30→13:41)
[2021-10-07] MEDS: APIXABAN 5 MG TABLET PO SCH ×2 (08:33→16:37)
[2021-10-07] MEDS: SERTRALINE HCL 50 MG TABLET PO SCH (08:33)
[2021-10-07] MEDS: BusPIRone HCL 10 MG TABLET PO SCH ×3 (08:33→20:16)
[2021-10-07] MEDS: DIVALPROEX SODIUM 500 MG DR TABLET PO SCH ×2 (08:33→20:16)
[2021-10-07 09:50] VITALS: BP 125/73
[2021-10-07] MEDS: IBUPROFEN 400 MG TABLET PO PRN (09:59)
[2021-10-07 16:30] VITALS: BP 137/94
[2021-10-07] MEDS: ZOLPIDEM TARTRATE 10 MG TABLET PO PRN (20:16)
[2021-10-08] MEDS: HALOPERIDOL 5 MG TABLET PO PRN ×4 (01:34→17:58)
[2021-10-08] MEDS: LORazepam 2 MG TABLET PO PRN ×4 (01:34→17:58)
[2021-10-08 06:56] LABS: COVID AG,FIA SOURCE NASAL SWAB
[2021-10-08 08:23] VITALS: BP 136/90
[2021-10-08] MEDS: APIXABAN 5 MG TABLET PO SCH ×2 (08:37→16:37)
[2021-10-08] MEDS: DIVALPROEX SODIUM 500 MG DR TABLET PO SCH (08:37)
[2021-10-08] MEDS: BusPIRone HCL 10 MG TABLET PO SCH (08:37)
[2021-10-08] MEDS: SERTRALINE HCL 50 MG TABLET PO SCH (08:37)
[2021-10-08 12:30] VITALS: BP 130/87
[2021-10-08] MEDS: IBUPROFEN 400 MG TABLET PO PRN (12:30)
[2021-10-08] MEDS: NICOTINE 14 MG/24 HOUR PATCH TD PRN (14:41)
[2021-10-08] MEDS: ACETAMINOPHEN 325 MG TABLET PO PRN (14:42)
[2021-10-08] MEDS: BusPIRone HCL 15 MG TABLET PO SCH ×2 (16:39→20:44)
[2021-10-08 17:00] VITALS: BP 140/77
[2021-10-08] MEDS: VALPROIC ACID 250 MG/5 ML SOLUTION UDCUP PO SCH (20:44)
[2021-10-08] MEDS: ZOLPIDEM TARTRATE 10 MG TABLET PO PRN (22:53)
[2021-10-09 02:29] VITALS: BP 150/86
[2021-10-09] MEDS: IBUPROFEN 400 MG TABLET PO PRN ×2 (02:29→11:32)
[2021-10-09 08:12] VITALS: BP 135/87
[2021-10-09] MEDS: BusPIRone HCL 15 MG TABLET PO SCH ×3 (08:32→20:22)
[2021-10-09] MEDS: APIXABAN 5 MG TABLET PO SCH ×2 (08:32→16:25)
[2021-10-09] MEDS: LORazepam 2 MG TABLET PO PRN ×2 (08:32→16:26)
[2021-10-09] MEDS: SERTRALINE HCL 100 MG TABLET PO SCH (08:32)
[2021-10-09] MEDS: VALPROIC ACID 250 MG/5 ML SOLUTION UDCUP PO SCH ×2 (08:32→20:22)
[2021-10-09] MEDS: HALOPERIDOL 5 MG TABLET PO PRN ×2 (08:33→16:26)
[2021-10-09] MEDS: ALBUTEROL SULFATE HFA 90 MCG/PUFF 8 GM INHALER IH PRN (08:35)
[2021-10-09] MEDS: NICOTINE 14 MG/24 HOUR PATCH TD PRN (11:32)
[2021-10-09 16:14] VITALS: BP 114/73
[2021-10-09] MEDS: ZOLPIDEM TARTRATE 10 MG TABLET PO PRN (23:42)
[2021-10-10] MEDS: HALOPERIDOL 5 MG TABLET PO PRN ×4 (00:34→18:13)
[2021-10-10] MEDS: LORazepam 2 MG TABLET PO PRN ×4 (00:34→18:13)
[2021-10-10 01:34] VITALS: BP 124/78
[2021-10-10 08:16] VITALS: BP 150/87
[2021-10-10] MEDS: SERTRALINE HCL 100 MG TABLET PO SCH (08:47)
[2021-10-10] MEDS: APIXABAN 5 MG TABLET PO SCH ×2 (08:47→17:04)
[2021-10-10] MEDS: BusPIRone HCL 15 MG TABLET PO SCH ×3 (08:47→20:20)
[2021-10-10] MEDS: VALPROIC ACID 250 MG/5 ML SOLUTION UDCUP PO SCH ×2 (08:48→20:20)
[2021-10-10] MEDS: IBUPROFEN 400 MG TABLET PO PRN (08:54)
[2021-10-10 16:43] VITALS: BP 134/74
[2021-10-11] MEDS: ZOLPIDEM TARTRATE 10 MG TABLET PO PRN (00:52)
[2021-10-11] MEDS: HALOPERIDOL 5 MG TABLET PO PRN ×2 (06:38→13:50)
[2021-10-11] MEDS: LORazepam 2 MG TABLET PO PRN ×2 (06:38→13:50)
[2021-10-11] MEDS: IBUPROFEN 400 MG TABLET PO PRN (08:02)
[2021-10-11] MEDS: VALPROIC ACID 250 MG/5 ML SOLUTION UDCUP PO SCH ×2 (08:02→20:19)
[2021-10-11] MEDS: BusPIRone HCL 15 MG TABLET PO SCH ×3 (08:03→20:18)
[2021-10-11] MEDS: APIXABAN 5 MG TABLET PO SCH ×2 (08:03→16:50)
[2021-10-11] MEDS: SERTRALINE HCL 100 MG TABLET PO SCH (08:03)
[2021-10-11] MEDS: NICOTINE 14 MG/24 HOUR PATCH TD PRN (08:03)
[2021-10-11 09:42] VITALS: BP_SYST 125; BP_SYST 129; BP_DIAS 83; BP_DIAS 84
[2021-10-11 16:08] VITALS: BP 115/73
[2021-10-12] MEDS: ZOLPIDEM TARTRATE 10 MG TABLET PO PRN (01:19)
[2021-10-12] MEDS: LORazepam 2 MG TABLET PO PRN ×3 (06:29→20:20)
[2021-10-12] MEDS: HALOPERIDOL 5 MG TABLET PO PRN ×3 (06:29→20:20)
[2021-10-12] MEDS: VALPROIC ACID 250 MG/5 ML SOLUTION UDCUP PO SCH ×2 (08:07→20:19)
[2021-10-12] MEDS: BusPIRone HCL 15 MG TABLET PO SCH ×3 (08:07→20:19)
[2021-10-12] MEDS: APIXABAN 5 MG TABLET PO SCH ×2 (08:07→16:33)
[2021-10-12] MEDS: IBUPROFEN 400 MG TABLET PO PRN (08:07)
[2021-10-12] MEDS: SERTRALINE HCL 100 MG TABLET PO SCH (08:07)
[2021-10-12] MEDS: NICOTINE 14 MG/24 HOUR PATCH TD PRN (08:08)
[2021-10-12 08:36] VITALS: BP 132/81
[2021-10-12 16:13] VITALS: BP 152/82
[2021-10-12 20:13] VITALS: BP 131/84
[2021-10-13] MEDS: ZOLPIDEM TARTRATE 10 MG TABLET PO PRN ×2 (02:19→22:31)
[2021-10-13] MEDS: LORazepam 2 MG TABLET PO PRN ×3 (03:15→16:31)
[2021-10-13] MEDS: HALOPERIDOL 5 MG TABLET PO PRN ×3 (03:15→16:31)
[2021-10-13] MEDS: SERTRALINE HCL 100 MG TABLET PO SCH (08:02)
[2021-10-13] MEDS: BusPIRone HCL 15 MG TABLET PO SCH ×3 (08:02→20:28)
[2021-10-13] MEDS: VALPROIC ACID 250 MG/5 ML SOLUTION UDCUP PO SCH ×2 (08:03→20:28)
[2021-10-13] MEDS: APIXABAN 5 MG TABLET PO SCH ×2 (08:03→16:30)
[2021-10-13 08:21] VITALS: BP 142/89
[2021-10-13] MEDS: NICOTINE 14 MG/24 HOUR PATCH TD PRN (12:16)
[2021-10-13 16:45] VITALS: BP 139/92
[2021-10-13 20:24] VITALS: BP 135/90
[2021-10-14] MEDS: HALOPERIDOL 5 MG TABLET PO PRN ×3 (04:52→18:06)
[2021-10-14] MEDS: LORazepam 2 MG TABLET PO PRN ×3 (04:52→18:06)
[2021-10-14 06:57] LABS: COVID AG,FIA SOURCE NASAL SWAB
[2021-10-14] MEDS: BusPIRone HCL 15 MG TABLET PO SCH ×3 (08:00→20:24)
[2021-10-14] MEDS: SERTRALINE HCL 100 MG TABLET PO SCH (08:00)
[2021-10-14] MEDS: VALPROIC ACID 250 MG/5 ML SOLUTION UDCUP PO SCH ×2 (08:00→20:24)
[2021-10-14] MEDS: APIXABAN 5 MG TABLET PO SCH ×2 (08:02→17:11)
[2021-10-14 08:21] VITALS: BP 165/84
[2021-10-14] MEDS: IBUPROFEN 400 MG TABLET PO PRN (09:47)
[2021-10-14 15:28] LABS: COVID AG,FIA SOURCE NASOPHARYNGEAL
[2021-10-14] MEDS ORDERED: BENZOCAINE 10% 7 GM GEL TP PRN (16:15)
[2021-10-14 16:16] VITALS: BP 116/82
[2021-10-14] MEDS: ZOLPIDEM TARTRATE 10 MG TABLET PO PRN (21:10)
[2021-10-15 02:01] VITALS: BP 136/92
[2021-10-15] MEDS: IBUPROFEN 400 MG TABLET PO PRN ×2 (02:01→08:20)
[2021-10-15] MEDS: HALOPERIDOL 5 MG TABLET PO PRN ×2 (08:20→13:31)
[2021-10-15] MEDS: SERTRALINE HCL 100 MG TABLET PO SCH (08:20)
[2021-10-15] MEDS: LORazepam 2 MG TABLET PO PRN ×2 (08:20→13:31)
[2021-10-15] MEDS: APIXABAN 5 MG TABLET PO SCH ×2 (08:20→16:00)
[2021-10-15] MEDS: BusPIRone HCL 15 MG TABLET PO SCH ×3 (08:20→20:12)
[2021-10-15] MEDS: VALPROIC ACID 250 MG/5 ML SOLUTION UDCUP PO SCH ×2 (08:21→20:12)
[2021-10-15 08:25] VITALS: BP 149/90
[2021-10-15] MEDS ORDERED: BUSP15 PO (10:33)
[2021-10-15] MEDS ORDERED: SERT-440 PO (10:33)
[2021-10-15] MEDS ORDERED: VALP250S23 PO (10:33)
[2021-10-15] MEDS ORDERED: APIX5TAB PO (10:33)
[2021-10-15] MEDS ORDERED: PALI234D IM (10:33)
[2021-10-15 16:05] VITALS: BP 118/77
[2021-10-16 03:31] VITALS: BP 129/81
[2021-10-16] MEDS: LORazepam 2 MG TABLET PO PRN (03:31)
[2021-10-16] MEDS: HALOPERIDOL 5 MG TABLET PO PRN (03:31)
[2021-10-16 08:00] VITALS: BP 133/85
[2021-10-16] MEDS: SERTRALINE HCL 100 MG TABLET PO SCH (08:51)
[2021-10-16] MEDS: BusPIRone HCL 15 MG TABLET PO SCH (08:51)
[2021-10-16] MEDS: VALPROIC ACID 250 MG/5 ML SOLUTION UDCUP PO SCH (08:51)
[2021-10-16] MEDS: APIXABAN 5 MG TABLET PO SCH (08:51)
== END 2021-10-16 10:00 | disposition home or self-care (01) | DRG 753 ==
LOC: B2S 22:49 → 3EI 08-17 16:09 → 3EC 08-21 02:00 → 3EI 09-04 10:49 → 3EC 09-24 12:37
PROVIDERS: ADMIT Psychiatry & Neurology Psychiatry; ATTEND Psychiatry & Neurology Psychiatry
DX: F31.5 Bipolar disorder, current episode depressed, severe, with psychotic features (principal); D68.59 Other primary thrombophilia; F14.10 Cocaine abuse, uncomplicated; Z20.822 Contact with and (suspected) exposure to COVID-19; E66.9 Obesity, unspecified; F10.10 Alcohol abuse, uncomplicated; F41.9 Anxiety disorder, unspecified; G25.81 Restless legs syndrome; R32 Unspecified urinary incontinence; Z68.41 Body mass index [BMI] 40.0-44.9, adult; Z59.00 Homelessness unspecified; Z91.041 Radiographic dye allergy status; Z88.0 Allergy status to penicillin; Z65.3 Problems related to other legal circumstances; Z79.01 Long term (current) use of anticoagulants; Z91.51 Personal history of suicidal behavior
CPT/HCPCS: 71045; 80048; 80053; 80061; 80164; 80307; 81003; 83036; 84153; 84439; 84443; 85025; 93005; 93970; J1200; J3230; J3535; 36415-L1; 36415-TC

== ENCOUNTER 2021-08-17 14:01 | Emergency (ER) | payer MEDICAID, OTHER ==
[~2021-08-17] VITALS: Ht 167.6 cm; Wt 122.7 kg
[~2021-08-17 14:01] MED LIST: APIX5TAB PO; POTA8TAB71 PO; RISP1TAB48 PO; SERT-158 PO
[2021-08-17 15:03] LABS: BASOPHILS % (AUTO) 1.1 % (0.0-2.0); EOSINOPHILS % (AUTO) 2.1 % (1.0-6.0); HEMATOCRIT 39.2 % (41-53); HEMOGLOBIN 12.8 g/dL (13.5-17.5); MEAN CORPUSCULAR HEMOGLOBIN 29.3 pg (26.0-34.0); MEAN CORPUSCULAR HGB CONC 32.8 G/dL (31.0-37.0); MEAN CORPUSCULAR VOLUME 90 fL (80-100); MONOCYTES # (AUTO) 0.5 K/uL (0.1-1.0); MONOCYTES % (AUTO) 10.9 % (2.0-9.0); NEUTROPHILS # (AUTO) 2.8 K/uL (1.8-7.7); NEUTROPHILS % (AUTO) 63.9 % (40.0-70.0); PLATELET COUNT (AUTO) 193 K/uL (150-450); RED BLOOD CELL COUNT(AUTO) 4.38 MIL/uL (4.50-5.90)
[2021-08-17 15:14] LABS: ANION GAP 6 mmol/L (8-16); CALCIUM, TOTAL 8.7 mg/dL (8.8-10.5); CARBON DIOXIDE 29 mmol/L (22-29); CHLORIDE 103 mmol/L (98-107); CREATININE 0.79 mg/dL (0.60-1.30); GLUCOSE,RANDOM 98 mg/dL (70-110); SODIUM SERUM 138 mmol/L (136-145); UREA NITROGEN, BLOOD 26 mg/dL (7-18)
[2021-08-17 15:16] LABS: PROTHROMBIN TIME 10.6 SEC (9.4-11.6)
[2021-08-17 15:18] LABS: GLOMERULAR FILTR. RATE CALC > 60 mL/min (>60)
[2021-08-17 15:20] LABS: ALANINE AMINOTRANSFERASE 40 U/L (12-78); ALBUMIN 3.3 g/dL (3.4-5.0); ALKALINE PHOSPHATASE 57 U/L (46-116); ASPARTATE AMINOTRANSFERASE 27 U/L (15-37); BILIRUBIN,TOTAL 0.3 mg/dL (0.1-1.0); TOTAL PROTEIN, SERUM 6.2 g/dL (6.4-8.2)
[2021-08-17 15:36] LABS: B-TYPE NATRIURETIC PEPTIDE 6 pg/mL (0-100)
[2021-08-17 15:47] VITALS: BP 139/79
== END 2021-08-17 16:57 | disposition home or self-care (01) ==
LOC: EMS 14:01
DX: I82.503 Chronic embolism and thrombosis of unspecified deep veins of lower extremity, bilateral (principal); D68.59 Other primary thrombophilia; F31.9 Bipolar disorder, unspecified; Z88.0 Allergy status to penicillin
CPT/HCPCS: 71045; 80053; 83880; 84484; 85025; 85610; 85730; 93005; 93970; 99285; 36415-L1; 36415-TC

== ENCOUNTER 2021-10-18 15:24 | Emergency (ER) | payer OTHER ==
[~2021-10-18] VITALS: Ht 175.3 cm; Wt 111.4 kg
[~2021-10-18 15:24] MED LIST changes: +BUSP15 PO; +PALI234D IM; -POTA8TAB71 PO; -RISP1TAB48 PO; -SERT-158 PO; +SERT-440 PO; +VALP250S23 PO
[2021-10-18] MEDS ORDERED: SERT-162 PO (15:58)
[2021-10-18] MEDS ORDERED: RISP1TAB89 PO (15:58)
[2021-10-18 17:41] VITALS: BP 133/89
[2021-10-18] MEDS ORDERED: HYDROCODONE/ACETAMINOPHEN 5-325 MG TABLET PO ONE (17:45)
== END 2021-10-18 18:51 | disposition home or self-care (01) ==
LOC: EMS 15:24
DX: I82.503 Chronic embolism and thrombosis of unspecified deep veins of lower extremity, bilateral (principal); F11.90 Opioid use, unspecified, uncomplicated; F16.90 Hallucinogen use, unspecified, uncomplicated; F17.210 Nicotine dependence, cigarettes, uncomplicated; F31.9 Bipolar disorder, unspecified; Z91.041 Radiographic dye allergy status; Z88.0 Allergy status to penicillin; Z79.899 Other long term (current) drug therapy
CPT/HCPCS: 99283

== ENCOUNTER 2021-10-19 11:19 | Emergency (ER) | payer OTHER ==
[~2021-10-19] VITALS: Ht 172.7 cm; Wt 104.5 kg
[~2021-10-19 11:19] MED LIST changes: -BUSP15 PO; -PALI234D IM; +RISP1TAB89 PO; +SERT-162 PO; -VALP250S23 PO
[2021-10-19 13:01] LABS: BASOPHILS % (AUTO) 1.1 % (0.0-2.0); EOSINOPHILS % (AUTO) 2.3 % (1.0-6.0); HEMATOCRIT 42.5 % (41-53); LYMPHOCYTES # (AUTO) 1.3 K/uL (1.0-4.8); LYMPHOCYTES % (AUTO) 29.2 % (22.0-44.0); MEAN CORPUSCULAR HEMOGLOBIN 30.1 pg (26.0-34.0); MEAN CORPUSCULAR VOLUME 91 fL (80-100); MONOCYTES # (AUTO) 0.6 K/uL (0.1-1.0); MONOCYTES % (AUTO) 13.1 % (2.0-9.0); NEUTROPHILS # (AUTO) 2.5 K/uL (1.8-7.7); NEUTROPHILS % (AUTO) 54.3 % (40.0-70.0); PLATELET COUNT (AUTO) 137 K/uL (150-450); RED BLOOD CELL COUNT(AUTO) 4.65 MIL/uL (4.50-5.90); RED CELL DISTRIBUTION WIDTH 14.2 % (11.5-14.5)
[2021-10-19 13:11] LABS: AMPHET/METH SCREEN,URINE NEGATIVE (NEGATIVE); BARBITURATE SCREEN, URINE NEGATIVE (NEGATIVE); BENZODIAZEPINES SCREEN,URINE NEGATIVE (NEGATIVE); CANNABINOID SCREEN,URINE NEGATIVE (NEGATIVE); COCAINE SCREEN,URINE NEGATIVE (NEGATIVE); METHADONE SCREEN, URINE NEGATIVE (NEGATIVE); OPIATE SCREEN,URINE POSITIVE (NEGATIVE); PHENCYCLIDINE SCREEN,URINE NEGATIVE (NEGATIVE)
[2021-10-19 13:20] LABS: ANION GAP 6 mmol/L (8-16); CALCIUM, TOTAL 8.7 mg/dL (8.8-10.5); CARBON DIOXIDE 30 mmol/L (22-29); CHLORIDE 104 mmol/L (98-107); CREATININE 0.91 mg/dL (0.60-1.30); GLOMERULAR FILTR. RATE CALC > 60 mL/min (>60); GLUCOSE,RANDOM 92 mg/dL (70-110); POTASSIUM 3.9 mmol/L (3.5-5.1); SODIUM SERUM 140 mmol/L (136-145); UREA NITROGEN, BLOOD 25 mg/dL (7-18)
[2021-10-19 13:24] LABS: ALANINE AMINOTRANSFERASE 28 U/L (12-78); ALBUMIN 3.8 g/dL (3.4-5.0); ALKALINE PHOSPHATASE 40 U/L (46-116); ASPARTATE AMINOTRANSFERASE 22 U/L (15-37); BILIRUBIN,TOTAL 0.7 mg/dL (0.1-1.0); TOTAL PROTEIN, SERUM 7.1 g/dL (6.4-8.2)
[2021-10-19 22:12] VITALS: BP 133/63
== END 2021-10-19 23:05 | disposition home or self-care (01) ==
LOC: EMS 11:19
DX: R45.851 Suicidal ideations (principal); R45.850 Homicidal ideations; F31.9 Bipolar disorder, unspecified; F17.210 Nicotine dependence, cigarettes, uncomplicated; F11.90 Opioid use, unspecified, uncomplicated; F16.90 Hallucinogen use, unspecified, uncomplicated; Z86.718 Personal history of other venous thrombosis and embolism; Z91.041 Radiographic dye allergy status
CPT/HCPCS: 99284; 80053; 85025; 36415; 80307; G0480; 99283